=== PATIENT | female | born 1995 | race Caucasian/White ===

== ENCOUNTER 2020-12-12 17:10 | Emergency (ER) | payer OTHER ==
[~2020-12-12] VITALS: Ht 165.1 cm; Wt 99.8 kg
[2020-12-12] MEDS ORDERED: PSEU120ER PO (18:49)
[2020-12-12] MEDS ORDERED: MONDOXYNE NL100 MG PO (18:49)
== END 2020-12-12 19:02 | disposition home or self-care (01) ==
LOC: ER 17:10
DX: J32.9 Chronic sinusitis, unspecified (principal); Z20.822 Contact with and (suspected) exposure to COVID-19
CPT/HCPCS: 99283